=== PATIENT | female | born 1985 | race Caucasian/White ===

== ENCOUNTER 2024-01-27 18:02 | Emergency (ER) | payer OTHER, SELFPAY ==
--- NOTE | ~2024-01-27 | CT_ITS ---
EXAMINATION: CTA abdomen pelvis DATE: 01/27/2024 20:27 CDT INDICATION: GI bleed TECHNIQUE: Computed tomographic angiography (CTA) of the abdomen and pelvis was performed with 100 mL Omnipaque-350 intravenous contrast. The dose-length product was 415.97 mGy-cm. Maximum intensity pro jection 3D-reconstructions of the aorta and other arteries were constructed by the technologist on a separate workstation. Automated exposure control and iterative reconstruction technique were employed . COMPARISON: None. FINDINGS: Lung bases are unremarkable. Heart size normal. There are bilateral breast implants. There are breast implants. No significant pleural or pericardial effusion. The spleen, pancreas, adrenal gl ands and kidneys are unremarkable. Gallbladder is present. The aorta is normal without evidence for a neurysm or dissection. The celiac axis, SMA, renal arteries and OMAR are patent. There is a 4.7 cm hyp ovascular mass of the right hepatic lobe posteriorly. There is associated nodular peripheral enhancem ent. No significant lymphadenopathy. Nonobstructive bowel gas pattern. IMPRESSION: 1. Hypovascular liver mass with peripheral nodular enhancement. In the absence of known malignancy th is most likely represents a benign hemangioma. 2: No acute abdominal abnormality. Reviewed, dictated and finalized at location A. IMPRESSION: 1. Hypovascular liver mass with peripheral nodular enhancement. In the absence of known malignancy this most likely represents a benign hemangioma. 2: No acute abdominal abnormality.
[2024-01-27 18:24] VITALS: BP 119/82; PULSE 74; RESP 18; TEMP 36.7; O2SAT 100
[2024-01-27 18:53] LABS: Basophils Percent Auto 0.4 % (0.2-1.2); Eosinophils Absolute Auto 0.1 K/mm3 (0-0.3); Eosinophils Percent Auto 0.8 % (0-4.4); Hematocrit 43.3 % (37.0-47.0); Hemoglobin 14.2 g/dL (12.0-15.0); Immature Granulocyte Absolute 0.07 K/mm3 (0.00-0.031); Immature Granulocyte Percent A 0.8 % (0-0.5); Mean Corpuscular HGB Conc 32.8 g/dl (32-36); Mean Corpuscular Hemoglobin 31.3 pg (26-34); Mean Corpuscular Volume 95.6 fl (80-100); Mean Platelet Volume 9.9 fl (7.4-10.4); Monocytes Absolute Auto 0.7 K/mm3 (0.1-0.6); Monocytes Percent Auto 7.4 % (2.6-8.5); Neutrophils Absolute Auto 4.1 K/mm3 (1.3-6.7); Neutrophils Percent Auto 44.6 % (45.5-73.1); Platelet Count Result 239 k/mm3 (150-375); Red Blood Count 4.53 M/mm3 (4.2-5.4); Red Cell Distribution Width 13.5 % (11.5-14.5); White Blood Count 9.1 K/mm3 (4.5-10.0)
[2024-01-27 19:02] LABS: Alanine Aminotransferase 21 U/L (6-35); Albumin Level 4.8 g/dL (3.5-5.1); Alkaline Phosphatase 45 U/L (38-126); Anion Gap 6 mmol/L (4-12); Aspartate Amino Transferase 27 U/L (14-36); Bilirubin,Total 0.5 mg/dL (0.2-1.3); Blood Urea Nitrogen 14 mg/dL (7-17); Calcium 9.1 mg/dL (8.4-10.2); Carbon Dioxide 27 mmol/L (22-30); Chloride 104 mmol/L (98-107); Estimated CRCL calculation 96 ml/min; Estimated Glomerular Filt Rate > 60; Glucose 98 mg/dL (65-110); Potassium 3.6 mmol/L (3.4-5.0); Sodium 137 mmol/L (137-145)
[2024-01-27 19:07] LABS: INR 0.9; Prothrombin Time 12.7 Seconds (11.1-14.7)
[2024-01-27 19:08] LABS: Partial Thromboplastin Time 24.8 Seconds (22.3-36.8)
[2024-01-27 19:11] VITALS: BP 108/72; PULSE 68; RESP 18; O2SAT 99
--- NOTE | 2024-01-27 19:34 | ED.GIBLEED ---
HPI - GI Bleed General Chief complaint: GI Bleed Stated complaint: rectal bleeding Time Seen by Provider: 01/27/24 19:10 Source: patient Limitations: no limitations History of Present Illness HPI Narrative: Patient is a 38-year-old female presents to the emergency department complaining of bright red blood in the toilet bowl. Patient states she had a bowel movement yesterday that looked entirely like bright red blood and then today she did not have any bowel movements when she urinates she said that that may have been a small streak of blood in the toilet bowl. Patient states she is not on her. And is not going to get her period for another couple days and became concerned. Patient is to history of hemorrhoids. Patient denies history of colonoscopies. Patient denies NSAID use the patient admits to occasional alcohol consumption. Patient denies any recent injuries or recent illness the patient denies vomiting, lightheadedness, chest pain, difficulty breathing. Patient denies use of blood thinners. Patient admits to a slight sensation of fullness in her rectal region. Patient denies ever seeing a hot roll laminator. Patient admits to sticking a finger upper anus yesterday and was unable to feel any internal hemorrhoids. Related Data Allergies Allergy/AdvReac Type Severity Reaction Status Date / Time No Known Allergies Allergy Verified 01/27/24 18:27 Review of Systems Review of Systems: All systems reviewed & are unremarkable except as noted in HPI and below PMFSH Comments At time of signature, I have reviewed and agree with nursing past medical, surgical, social and family history unless otherwise noted. Please see the nursing chart for further information. There is no relevant family history pertinent to the presenting complaint. Exam Narrative: CONST: No acute distress. Well nourished. HENMT: Head is normocephalic and atraumatic. Moist mucous membranes. No posterior oropharynx erythema. EYES: No conjunctival icterus, injection, or pallor. PERRL. NECK: No meningeal signs. RESP: Able to speak in full sentences. Normal respiratory effort. CTAB. CARDIO: Regular rate. Regular rhythm. 2+ DP and radial pulses bilaterally. GI: Nondistended. No tenderness to palpation. Soft. : No CVA tenderness to palpation. External examination of the anus reveals non bleeding non thrombosed hemorrhoids. Digital rectal examination reveals no gross blood, no palpable internal hemorrhoids, no palpable masses, guaiac testing is positive. SKIN: No rashes or lesions noted on exposed skin. NEURO: Oriented x3. Moves all extremities. EXTREM/MSK/BACK: No pedal edema. PSYCH: Normal affect. Course Vital Signs Vital signs: Vital Signs Temperature 98.1 F 01/27/24 18:24 Pulse Rate 74 01/27/24 18:24 Respiratory Rate 18 01/27/24 18:24 Blood Pressure 119/82 01/27/24 18:24 Pulse Oximetry 100 01/27/24 18:24 Oxygen Delivery Room Air 01/27/24 18:24 Temperature 98.1 F 01/27/24 18:24 Pulse Rate 56 L 01/27/24 20:34 Respiratory Rate 16 01/27/24 20:34 Blood Pressure 114/77 01/27/24 20:34 Pulse Oximetry 100 01/27/24 20:34 Oxygen Delivery Room Air 01/27/24 18:24 MDM - GI Bleed MDM Narrative Medical decision making narrative: Patient presents with the above complaint. Initial vitals are remarkable for no significant abnormalities. Physical examination as noted above. Plan discussed: Laboratory analysis, CT of the abdomen pelvis. She decision making performed patient regarding obtaining a CT of the abdomen pelvis in the indications for which including a brisk gastrointestinal bleeding, my low suspicion for such being the case at this time, patient still wants to proceed with CT imaging. My differential diagnosis includes but not limited to hemorrhoid, angiodysplasia, diverticulosis, cancer, inflammatory bowel disease. Presentation is not consistent with mesenteric ischemia or ischemic colitis the pat
[2024-01-27 19:55] LABS: SPREG INTERNAL CONTROL Positive; Serum Qual hCG Negative
[2024-01-27 20:34] VITALS: BP 114/77; PULSE 56; RESP 16; O2SAT 100
[2024-01-27 20:50] LABS: Appearance Urine Clear (Clear); Bilirubin Urine Negative (Negative); Blood Urine Negative (Negative); Color Urine Yellow (Yellow); Glucose Urine UA Negative (Negative); Ketones Urine Negative (Negative); Leukocyte Esterase Ur Negative LEU/UL (Negative); Nitrate Urine Negative (Negative); Protein Urine Negative (Negative); Specific Grav Ur 1.008 (1.001-1.035); Urobilinogen Urine 0.2 mg/dL (<2.0)
[2024-01-27 20:57] LABS: Add Urine Microscopic? NO
== END 2024-01-27 20:58 | disposition home or self-care (01) ==
PROVIDERS: Emergency Medicine; Emergency Provider Student in an Organized Health Care Education/Training Program
DX: K92.2 Gastrointestinal hemorrhage, unspecified (principal); K64.9 Unspecified hemorrhoids
CPT/HCPCS: 36415; 74174; 80053; 81003; 84703; 85025; 85610; 85730; 86850; 86900; 86901; 99284; Q9967

== ENCOUNTER 2024-04-15 02:01 | Day surgery (SDC) | payer OTHER, SELFPAY ==
[2024-03-26 15:25] VITALS: BMI 28.6
[2024-04-15 13:00] VITALS: BP 100/65; PULSE 79; RESP 18; TEMP 36.7; O2SAT 99
[2024-04-15 13:23] LABS: BEDSIDEPREGUCG Negative
[2024-04-15] MEDS: LACTATED RINGERS 1,000 ML 150 ML IV CONT (13:44)
--- NOTE | 2024-04-15 13:52 | P.PNAN_ITS ---
Anes - Initial Pre Proc Eval Procedure: Operation Date: 04/15/24 14:30 Proposed Procedures p Colonoscopy - Mohinder Wilson MD Date/Time: 04/15/24 13:52 Surgeon: Mohinder Wilson MD Pre Op Diagnosis: Hemorrhage of anus and rectum Patient Data Age: 38 Gender: F Height: 1.6 m Weight: 77 kg Last Vital Signs Temp 98.0 F 04/15/24 13:00 Pulse 79 04/15/24 13:00 Resp 18 04/15/24 13:00 BP 100/65 04/15/24 13:00 Pulse Ox 99 04/15/24 13:00 O2 Del Method Room Air 04/15/24 13:00 Allergies Allergy/AdvReac Type Severity Reaction Status Date / Time No Known Allergies Allergy Verified 02/12/24 08:51 Laboratory Tests 04/15/24 13:21 POC Urine HCG, Qual Negative POC Ur Preg QC Yes Patient hx anesthesia problems: none Family hx anesthesia problems: none Results Review: All pre-operative results and documents have been reviewed as part of the pre- operative evaluation. [facility] Past Medical History Medical History Rectal bleeding Social History Social History Years smoked: 20 Smoking status: Current every day smoker Tobacco type: cigarettes Drinks per week: 6 Substance use: never Living arrangements: with family Spiritual care concerns: No Anes - Eval Final PreProcedure Day of Procedure 04/15/24 13:52 Patient weight: overweight Heart: regular rate and rhythm Lungs: clear to auscultation Airway: Mallampati scale and special considerations (L lower tooth is broken/cracked. ) Neurological: alert and oriented Last oral intake: >/= 8 hours ASA classification: II Emergent: no Anesthetic plan: proceed Anesthesia type and monitoring: general GIVS and standard monitoring Results Review: All pre-operative results and documents have been reviewed as part of the pre- operative evaluation. Pt is daily smoker, smoked 2 cigs earlier today, hyperlipidemia. Informed Consent: The patient's anesthetic plan and its attendant risks and benefits were discussed with the patient/family/POA. Questions were solicited and answers provided to the satisfaction of the patient/family/POA.
--- NOTE | 2024-04-15 13:57 | PM.HPGS ---
History of Present Illness History of Present Illness Consent: Risks, benefits, and alternatives have been discussed and questions answered. Patient agrees to proceed with procedure. Chief complaint: Hemorrhage of anus and rectum Narrative: Donna Bustamante is a 38 year old female here for first colonoscopy, had episode of rectal bleeding 01/2024 Review of Systems Review of Systems: All systems reviewed & are unremarkable except as noted in HPI and below PMFSH Past Medical History Medical History Rectal bleeding Social History Social History Years smoked: 20 Smoking status: Current every day smoker Tobacco type: cigarettes Drinks per week: 6 Substance use: never Living arrangements: with family Spiritual care concerns: No Meds Home Medications and Allergies Allergies Allergy/AdvReac Type Severity Reaction Status Date / Time No Known Allergies Allergy Verified 02/12/24 08:51 Vital Signs Vital Signs - 24 hr 04/15/24 13:00 Temperature 98.0 F Pulse Rate 79 Respiratory Rate 18 Blood Pressure 100/65 Pulse Oximetry 99 Oxygen Delivery Room Air Exam Const: General: comfortable and no acute distress HENMT: Face/Nose/Sinus: Normal nares present Eyes: General: appearance normal, both eyes and all related structures Neck: Neck: no JVD Resp: Auscultation: clear to auscultation bilaterally Cardio: Rate: regular rate Rhythm: regular rhythm GI: Inspection: non-distended GI Palp: Yes Soft to palpation Skin: General skin exam: normal color Neuro: General: gait normal Speech: normal speech Extrem: General: normal to inspection Psych: Mental Status: mental status grossly normal Assessment and Plan Assessment and plan (1) Rectal bleeding: Code(s): K62.5 - Hemorrhage of anus and rectum Status: Acute Assessment and Plan: colonoscopy
[2024-04-15 14:16] VITALS: BP 100/67; PULSE 64; RESP 21; O2SAT 100
[2024-04-15 14:26] VITALS: BP 101/67; BP 108/68; PULSE 68; PULSE 71; RESP 17; RESP 21; O2SAT 100
== END 2024-04-15 14:45 | disposition home or self-care (01) ==
PROVIDERS: Anesthesiology; Referring Provider Nurse Practitioner Family; Visit Provider Internal Medicine Gastroenterology
PROC: 0DJD8ZZ Inspection of Lower Intestinal Tract, Via Natural or Artificial Opening Endoscopic (ICD-10-PCS; CPT 45378; principal; 2024-04-15 14:30)
DX: K64.8 Other hemorrhoids (principal); F17.210 Nicotine dependence, cigarettes, uncomplicated
CPT/HCPCS: 45378; J2704; J7120